=== PATIENT | female | born 1965 | race Caucasian/White ===

== ENCOUNTER 2017-01-10 20:17 | Emergency (ER) | payer MEDICAID ==
[2017-01-10] MEDS ORDERED: GI Cocktail Oral Solution 30 ML PO ONE (20:55)
--- NOTE | 2017-01-10 21:10 | EDM.PDOC ---
ED HPI GENERAL MEDICAL PROBLEM - General Chief Complaint: General Stated Complaint: KIDNEY PAIN Time Seen by Provider: 01/10/17 20:40 Source of Information: Reports: Patient, RN - History of Present Illness INITIAL COMMENTS - FREE TEXT/NARRATIVE: 51 yr female presents with right sided back pain and radiates around to abdomen. States she has been going to Dr evita Stoddard for this since 12-22-16. States she had an U/S and CT which showed left kidney stones, liver and pancreas normal. States she had another visit today and U/A was done that showed normal results. Her physician said she could travel today and has come with her to this facility. She was started on Robaxin and oxybutynin for low back pain and dysuria. States she has taken the Vicoden in the past and the pain has been relieved. Rates her pain a 9" now. States lying on her right side helps the pain. States she has started using more vegetable juice for her meals lately and has some cranberries and nuts on the way here. States she did have a BM on the way here. TC to [phone] and talked to ER charge nurse Shahla? She was able to look at pt notes in record and noticed the U/S and CT completed on 12-22-16, that showed the left kidney stones, liver, pancreas are unremarkable. Pt did ambulate to the BR to void with assist of her . Abdomen is soft and nondistended. States some tenderness to entire abdomen. States worse to RUQ and midddle abdomen. States some pressure to lower middle quadrant, consistent with needing to void. With pain increase after nuts and cranberries and her abdominal pain, GO cocktail was given. Pt states she did take some tums the other night and the pain got better and she did sleep. Right Lower Back Pain Score (Numeric/FACES): 9 - Related Data Allergies Allergy/AdvReac Type Severity Reaction Status Date / Time aspirin Allergy Hives Verified 01/10/17 20:38 Penicillins Allergy Hives Verified 01/10/17 20:38 ranitidine Allergy Hives Verified 01/10/17 20:44 Home Meds: Home Meds Bran/Gum/Fib/Samia/Psyl/Kelp/Pec [Fiber 6 Tablet] 1,000 mg PO DAILY 01/10/17 [ History] Hydrocodone/Acetaminophen [Vicodin 5-300 mg Tablet] 1 - 2 each PO Q4HR PRN 01/10 [History] Lisinopril 10 mg PO DAILY 01/10/17 [History] Methocarbamol [Robaxin] 500 mg PO TID PRN 01/10/17 [History] Oxybutynin 5 mg PO TID 01/10/17 [History] Past Medical History Cardiovascular History: Reports: Hypertension Genitourinary History: Reports: Renal Calculus Musculoskeletal History: Reports: Other (See Below) Other Musculoskeletal History: Compression Fx in "lower back" January 2016 - Past Surgical History HEENT Surgical History: Reports: Tonsillectomy Social & Family History - Family History Family Medical History: Noncontributory - Tobacco Use Smoking Status *Q: Former Smoker Years of Tobacco use: 40 Packs/Tins Daily: 1 Used Tobacco, but Quit: Yes Month Tobacco Last Used: 12/22/2016 Second Hand Smoke Exposure: Yes - Caffeine Use Caffeine Use: Reports: Coffee - Alcohol Use Days Per Week of Alcohol Use: 1 Number of Drinks Per Day: 3 Total Drinks Per Week: 3 - Recreational Drug Use Recreational Drug Use: Yes Drug Use in Last 12 Months: Yes Recreational Drug Type: Reports: Marijuana/Hashish Recreational Drug Use Frequency: Daily ED ROS GENERAL - Review of Systems Review Of Systems: See Below Constitutional: Reports: No Symptoms. Denies: Fever, Chills HEENT: Reports: No Symptoms Respiratory: Reports: No Symptoms. Denies: Shortness of Breath Cardiovascular: Reports: No Symptoms. Denies: Chest Pain GI/Abdominal: Reports: Abdominal Pain, Constipation, Nausea. Denies: Hematochezia : Reports: Flank Pain. Denies: Hematuria Musculoskeletal: Reports: Back Pain Skin: Reports: No Symptoms Neurological: Reports: No Symptoms ED EXAM, GENERAL - Physical Exam Exam: See Below Exam Limited By: No Limitations General Appearance: Alert, No Apparent Distress Nose: Normal Inspection Throat/Mouth: Normal Lips Head: Atraumatic, Normocephalic Respiratory/Chest: Lungs Clear, Normal Breath Sounds Cardiovascular: Regular Rate, Rhythm GI/Abdominal: Normal Bowel Sounds, Soft, Non-Tender (Female) Exam: Deferred Rectal (Female) Exam: Deferred Extremities: Normal Inspection, Normal Range of Motion Neurological: Alert, Oriented Psychiatric: Normal Affect, Normal Mood Skin Exam: Warm, Dry, Normal Color Course - Vital Signs Last Recorded V/S: Last Vital Signs Temp 96.4 F 01/10/17 21:01 Pulse 79 01/10/17 21:01 Resp 16 01/10/17 21:01 BP 137/73 01/10/17 21:01 Pulse Ox 100 01/10/17 21:01 - Orders/Labs/Meds Labs: Laboratory Tests 01/10/17 01/10/17 Range/Units 21:15 21:15 WBC 19.6 H (4.0-11.0) K/uL RBC 4.83 (3.80-5.80) M/uL Hgb 14.5 (11.5-16.5) g/dL Hct 42.6 (37.0-47.0) % MCV 88 (76-96) fL MCH 30.0 (27.0-32.0) pg MCHC 34.0 (31.0-35.0) g/dL RDW 12.8 (11.0-16.0) % Plt Count 311 (150-500) K/uL MPV 9.9 (6.0-10.0) fL Neut % (Auto) 90.1 H (45.0-70.0) % Lymph % (Auto) 6.1 L (20.0-40.0) % Ulster % (Auto) 3.4 (3.0-10.0) % Eos % (Auto) 0.1 L (1.0-5.0) % Baso % (Auto) 0.3 (0.0-0.5) % Neut # (Auto) 17.68 H (2.00-7.50) K/uL Lymph # (Auto) 1.20 L (1.50-4.00) K/uL Ulster # (Auto) 0.67 (0.20-0.80) K/uL Eos # (Auto) 0.01 L (0.04-0.40) K/uL Baso # (Auto) 0.05 (0.02-0.10) K/uL Sodium 142 (136-145) mmol/L Potassium 3.9 (3.5-5.1) mmol/L Chloride 104 (98-107) mmol/L Carbon Dioxide 26.9 (21.0-32.0) mmol/L Anion Gap 15.0 (5.0-15.0) mmol/L BUN 16 (8-26) mg/dL Creatinine 1.34 H (0.55-1.02) mg/dL Est Cr Clr Drug Dosing 43.37 mL/min Estimated GFR (MDRD) 42 L (>60) MLS/MIN BUN/Creatinine Ratio 11.9 (6-25) Glucose 145 H (74-100) mg/dL Calcium 9.3 (8.5-10.1) mg/dL Total Bilirubin 0.5 (0.0-1.0) mg/dL AST 22 (15-37) U/L ALT 30 (12-78) U/L Alkaline Phosphatase 85 (46-116) U/L Total Protein 7.8 (6.4-8.2) g/dL Albumin 4.5 (3.4-5.0) g/dL Globulin 3.3 (2.2-4.2) g/dL Albumin/Globulin Ratio 1.4 (0.8-2.0) Meds: Medications Discontinued Medications Generic Name Dose Route Start Last Admin Trade Name Freq PRN Reason Stop Dose Admin Al Hydroxide/Mg Hydroxide 30 ml 01/10/17 20:55 01/10/17 21:00 Gi Cocktail PO 01/10/17 20:56 30 ml ONETIME ONE Administration Ketorolac Tromethamine Confirm 01/10/17 22:04 01/10/17 22:09 Toradol Administered 01/10/17 22:05 Not Given Dose 30 mg .ROUTE .STK-MED ONE Ketorolac Tromethamine 30 mg 01/10/17 22:00 Toradol IM 01/10/17 22:01 ONETIME ONE - Re-Assessments/Exams Free Text/Narrative Re-Assessment/Exam: 01/10/17 22:09 Pain decrease from 9 to "5" with use of GI cocktail. Lab results reviewed with pt and , leukocytosis noted and mild decrease in kidney function. Pt had been vomitting. U/A this am was normal. Pt states she has been having difficulty with urination and has a consult with urology and soonest appointment is February. Discussed option of IM toradol for relief of muscle spasm and back pain. Pt states she has had this before. Toradol 30 mg IM ordered. Discharge to self care, F/U with PCP, or return to ER if pain returns. continue to use robaxin and Vicoden for relief of pain. Recommend stool softener and continue with fiber for regular BM. Recommend rest , increase fluids for hydration, and continue medications for pain. Departure - Departure Time of Disposition: 22:15 Disposition: Home, Self-Care 01 Condition: Good Clinical Impression: Pain of paraspinal muscle - Discharge Information Referrals: PCP,None [Primary Care Provider] - Forms: ED Department Discharge Additional Instructions: Take regularly prescribed Robaxin as previously directed. Increase intake of oral fluids (water). Should symptoms persist or worsen, return to be seen. Follow up with regular provider as previously discussed. Call with any questions.
[2017-01-10] MEDS ORDERED: Ketorolac 30 MG/ML SDV IM ONE (22:00)
[2017-01-10] MEDS ORDERED: Ketorolac 30 MG/ML SDV ONE (22:04)
== END 2017-01-10 22:15 | disposition home or self-care (01) ==
LOC: LB.ED 20:17
DX: M79.1 Myalgia (principal); M54.5 Low back pain; I10 Essential (primary) hypertension; Z98.890 Other specified postprocedural states; Z87.891 Personal history of nicotine dependence; Z79.899 Other long term (current) drug therapy; Z88.0 Allergy status to penicillin; Z88.8 Allergy status to other drugs, medicaments and biological substances; Z88.6 Allergy status to analgesic agent
CPT/HCPCS: 36415; 80053; 85025; 96372; 99283; A9270; J1885